=== PATIENT | male | born 1960 | race Caucasian/White ===

== ENCOUNTER 2020-11-07 20:07 | Emergency (ER) | payer OTHER, SELFPAY ==
--- NOTE | 2020-11-07 | ECG_ITS ---
Test Reason : MED CLEARANCE Blood Pressure : / mmHG Vent. Rate : 089 BPM Atrial Rate : 089 BPM P-R Int : 164 ms QRS Dur : 102 ms QT Int : 390 ms P-R-T Axes : 039 -24 015 degrees QTc Int : 474 ms Poor data quality, interpretation may be adversely affected Normal sinus rhythm Normal ECG No previous ECGs available Referred By: Generic ED Physician Electronically Signed By:MELVI TOM MD
[2020-11-07 20:14] VITALS: BP 123/77; PULSE 105; RESP 16; TEMP 36.6; O2SAT 90; BMI 26.6
[2020-11-07 20:20] VITALS: BP 144/94; PULSE 119; O2SAT 94
--- NOTE | 2020-11-07 21:08 | ED_ITS ---
HPI - Overdose General Chief Complaint: Overdose Stated Complaint: Overdose/Etoh Time Seen by Provider: 11/07/20 20:56 Source: patient and EMS Mode of arrival: EMS Limitations: no limitations History of Present Illness HPI Narrative: Patient comes emergency room by EMS. EMS reports that the patient was found unresponsive at his apartment by a friend, he was given 4 mg of nasal Narcan. Patient states that he never lost consciousness, he did not use any drugs, states that his neighbors are framing him and accusing him of overdosing because last week the patient called an ambulance for his neighbors. At this time, patient has no complaints. Patient has a small hematoma to the left side of his forehead, states that he got it at work earlier today, before this incident happened. Patient admits that he drank 4-5 shots of alcohol earlier today, states that is his usual amount. Patient is adamant that he did not use drugs Related Data Allergies Allergy/AdvReac Type Severity Reaction Status Date / Time No Known Allergies Allergy Verified 11/07/20 20:21 Review of Systems Review of Systems: Constitutional : No Weight loss, No Fever, No Chills, No Night Sweats, No Fatigue, No Malaise ENT/Mouth : No Hearing loss, No Ear Pain, No Nasal Congestion, No Sinus Pain, No Hoarseness, No sore throat, No Rhinorrhea, No Swallowing Difficulty Eyes: No Eye Pain, No Swelling, No Redness, No Foreign Body, No Discharge, No Vision Changes Cardiovascular : No Chest Pain, No SOB, No Dyspnea on Exertion, No Orthopnea, No Edema, No Palpitations Respiratory : No Cough, No Sputum, No Wheezing, No Smoke Exposure, No Dyspnea Gastrointestinal : No Nausea, No Vomiting, No Diarrhea, No Constipation, No abdominal Pain, No Hematochezia, No Melena Genitourinary : no irregular bleeding, No Dysuria, No Urinary Frequency, No Hematuria, No Urinary Incontinence, No Urgency, No Flank Pain, No Urinary Flow Changes, No Hesitancy Musculoskeletal : No joint pain, No Myalgias, No Joint Swelling Skin : No Skin Lesions, No rash Neuro : No Weakness, No Numbness, No Paresthesias, No Loss of Consciousness, No Dizziness, No Headache Psych : No Anxiety/Panic, No Depression, No SI/HI/AH/VH, No Social Issues, Heme/Lymph: No Bruising, No Bleeding,No Lymphadenopathy Endocrine : No Polyuria, No Polydipsia, No Temperature Intolerance [facility] Past Medical History Medical History High cholesterol Hypertension Social History Social History Advance Directives: No Advance Directives Information Provided: Yes Physical Exam Vital Signs: Vital Signs: Last Vital Signs Temp 97.9 F 11/07/20 20:14 Pulse 105 H 11/07/20 20:14 Resp 16 11/07/20 20:14 BP 123/77 11/07/20 20:14 Pulse Ox 90 L 11/07/20 20:14 Body Mass Index 26.6 Appearance: Alert. Oriented X3. No acute distress. Eyes: Pupils equal, round and reactive to light. ENT: Pharynx normal. Neck: Normal inspection. Neck supple. No lymph nodes noted. No crepitus CVS: Normal heart rate and rhythm. Pulses normal. Normal S1 and S2 Respiratory: No respiratory distress. Breath sounds normal. No Wheezing. No rales Abdomen: Soft and nontender. No rigidity. No distention. good BS x4 Skin: Skin warm and dry. Normal skin color. Normal skin turgor. Small 2 cm x 2 cm hematoma on the left side of the forehead, small abrasion Extremities: No lower extremity edema. No lower extremity edema. No Lacerations. No Rash Neuro: Oriented X 3. No motor deficit. No sensory deficit. Moving all extermities. No slurred speech. Course Course Course Narrative: patient is mostly awake, at times, he falls asleep and his oxygen saturation drops to 88% on room air. Once he wakes up, his oxygen saturation improves patient declined any blood work. Patient's urine tested positive for opiates and cocaine Patient has been awake and alert for the last hour and a half, steady gait, oxygen saturation 98% on room air. Patient is clinically sober. Patient ready for discharge MDM - Overdose Lab Data Labs: Lab Results 11/07/20 Range/Units 21:40 Urine Opiates Screen POSITIVE H (Not Detect) Ur Barbiturates Screen Not Detected (Not Detect) Ur Phencyclidine Scrn Not Detected (Not Detect) Ur Amphetamines Screen Not Detected (Not Detect) U Benzodiazepines Scrn Not Detected (Not Detect) Urine Cocaine Screen POSITIVE H (Not Detect) U Marijuana (THC) Screen Not Detected (Not Detect) ECG Data Attestation: I personally reviewed and interpreted this ECG as follows: ( sinus rhythm, heart rate 88, no ST segment depression or elevation, no T-wave inversion, QTC 474) Discharge Plan Discharge Clinical Impression: Drug overdose Qualifiers: Injury intent: accidental or unintentional Patient Disposition: Home, Self-Care Instructions: Adult Overdose (ED) Additional Instructions: Please follow-up with your primary care physician tomorrow. If you have any worsening or new symptoms, please return to the emergency room or call 911
[2020-11-07 22:09] LABS: Amphetamine Screen Urine Not Detected (Not Detect); Barbiturates, Urine Not Detected (Not Detect); Benzodiazepines Screen Urine Not Detected (Not Detect); Cannabinoid Screen Urine Not Detected (Not Detect); Cocaine Screen Urine POSITIVE (Not Detect); Opiate Screen Urine POSITIVE (Not Detect); Phencyclidine Screen Urine Not Detected (Not Detect)
--- NOTE | 2020-11-07 22:13 | PC.NURSE ---
while sleeping pt's spo2 noted to drop to 89%, rr even unlabored, pt placed on o2 via nc, at 2lpm spo2 increased to 94%, while now awake pt's spo2 95% on ra. pt very drowsy, quickly falling asleep but occasionally waking up and yelling to leave, then back to sleep.
== END 2020-11-07 23:02 | disposition home or self-care (01) ==
PROVIDERS: Emergency Provider Emergency Medicine
DX: T50.901A Poisoning by unspecified drugs, medicaments and biological substances, accidental (unintentional), initial encounter (principal); Y92.9 Unspecified place or not applicable
CPT/HCPCS: 80307; 93005; 99283; 99284